=== PATIENT | female | born 1975 | race Caucasian/White ===

== ENCOUNTER 2016-04-25 22:06 | Emergency (ER) | payer MEDICAID ==
[~2016-04-25] VITALS: Ht 162.6 cm; Wt 76.7 kg
[2016-04-25 22:33] VITALS: BP 125/93; PULSE 111; RESP 18; TEMP 99.2; O2SAT 100
[2016-04-26] MEDS ORDERED: LISI-515 PO (00:06)
--- NOTE | 2016-04-26 00:15 | PD ---
HPI Chief Complaint: Cardiac Complaint Time Seen by Provider: 00:03 Travel History International Travel<30 days: No Contact w/Intl Traveler<30days: No Traveled to known affect area: No History of Present Illness HPI The patient is a 40-year-old female that complains of a fast and possibly irregular heart rate for 1-2 hours. The patient has been very anxious. She states her boyfriend is in [facility] and starts crying when he thinks about it. She smokes a pack a day and has a history of hypertension as well as a family history of heart disease at an early age. She denies any diabetes or elevated cholesterol. She denies any syncopal or near syncopal spells. He does not have any chest discomfort or chest pain except for a sharp sensation of chest pain on one area of the left costochondral junction which is easily reproducible by pressing on the area. PFSH Past Surgical History Abdominal Surgery: Yes (hernia) Social History Alcohol Use: Yes Tobacco Use: Yes Substance Use: Yes (cocaine) Allergies-Medications (Allergen,Severity, Reaction): Coded Allergies: No Known Allergies (Unverified , 10/19/14) Reported Meds & Prescriptions Reported Meds & Active Scripts Active No Active Prescriptions or Reported Medications Review of Systems Except as stated in HPI: all other systems reviewed are Neg Physical Exam Narrative GENERAL: Well-nourished, well-developed patient who appears extremely anxious in otherwise no apparent distress. Her vital signs showed temperature 99.2, heart rate 111 but otherwise normal. When I see the patient her heart rate is in the mid 90s and sinus rhythm. However, the patient does get anxious and during the exam cot anxious and her heart rate went to between 110 and 120, sinus rhythm. No PACs or PVCs were noted. SKIN: Warm and dry. No needle tracks nor wrist slash le are present. HEAD: Normocephalic. EYES: No scleral icterus. No injection or drainage. NECK: Supple, trachea midline. No JVD or lymphadenopathy. CARDIOVASCULAR: Regular rate and rhythm without murmurs, gallops, or rubs. I can completely reproduce the patient's chest pain by pressing on the left costochondral junction at one spot. RESPIRATORY: Breath sounds equal bilaterally. No accessory muscle use. Lungs clear to auscultation bilaterally. GASTROINTESTINAL: Abdomen soft, non-tender, nondistended. MUSCULOSKELETAL: No cyanosis, or edema. BACK: Nontender without obvious deformity. No CVA tenderness. Data Data Last Documented VS Vital Signs Date Time Temp Pulse Resp B/P Pulse Ox O2 Delivery O2 Flow Rate FiO2 04/25/16 22:33 99.2 111 18 125/93 100 MDM Medical Decision Making Medical Screen Exam Complete: Yes Emergency Medical Condition: Yes Medical Record Reviewed: Yes Differential Diagnosis Palpitations due to anxiety, PACs, PVCs, atrial fibrillation, sinus tachycardia , ventricular tachycardiaunlikely Narrative Course During the time the patient was in the emergency department she was monitored and no PVCs, PACs, atrial fibrillation, ventricular tachycardia or any other dysrhythmia was noted. The only deviation from normal was sinus tachycardia when the patient got anxious. Diagnosis Primary Impression: Anxiety Additional Impression: Sinus tachycardia Additional Instructions: As we discussed, if you get significant palpitations, call an ambulance and they will record the rhythm at that time. The only rhythm disturbance tonight was a fast heart rate associated with anxiety. This heart rate is normal for people with anxiety. Exercise often helps your problems. You need to follow- up with a primary care physician. You also need to discontinue smoking. You do have a strong family history of heart disease and a primary care physician in odor test to determine what he need to be on medicine to lower cholesterol, blood pressure etc. Med/Other Pt SpecificInfo: No Change to Meds Scripts No Active Prescriptions or Reported Meds Disposition: 01 DISCHARGE HOME Condition: Stable Anthony Pompa MD Apr 26, 2016 00:15
[2016-04-26 01:04] VITALS: BP 126/81
--- NOTE | 2016-04-27 08:29 | EKG ---
Date Performed: 04/25/2016 Time Performed: 22:55:00 PTAGE: 40 years EKG: Sinus rhythm . Normal ECG NO PREVIOUS TRACING DOCTOR: Vu Armendariz Interpretating Date/Time 04/27/2016 08:25:57
== END 2016-04-26 01:11 | disposition home or self-care (01) ==
LOC: PHED 22:06
DX: F41.9 Anxiety disorder, unspecified (principal); R00.0 Tachycardia, unspecified; Z82.49 Family history of ischemic heart disease and other diseases of the circulatory system; I10 Essential (primary) hypertension; F17.210 Nicotine dependence, cigarettes, uncomplicated
CPT/HCPCS: 93005; 99283